=== PATIENT | female | born 2000 | race Caucasian/White ===

== ENCOUNTER → 2023-10-24 06:19 | Day surgery (SDC) | payer BC, SELFPAY | LOC: GI 06:19 | PROVIDERS: ATTENDING PHYSICIAN Internal Medicine Gastroenterology | DX: Z09 Encounter for follow-up examination after completed treatment for conditions other than malignant neoplasm (principal); Z98.0 Intestinal bypass and anastomosis status; Z87.19 Personal history of other diseases of the digestive system | CPT/HCPCS: 45331; 88305 ==

== ENCOUNTER → 2023-10-30 11:22 | Outpatient (REF) | payer BC, SELFPAY | LOC: RAD 11:22 | PROVIDERS: ATTENDING PHYSICIAN Internal Medicine Gastroenterology; FAMILY PHYSICIAN Family Medicine | DX: K76.0 Fatty (change of) liver, not elsewhere classified (principal) | CPT/HCPCS: 76700 ==